=== PATIENT | male | born 1955 | race Caucasian/White ===

== ENCOUNTER 2019-06-25 07:02 | Inpatient (IN) | payer OTHER ==
[~2019-06-25] VITALS: Ht 188 cm; Wt 72.9 kg
[2019-06-25] MEDS ORDERED: IMMUNO THERAPY (07:27)
[2019-06-25 07:56] LABS: BASOPHILS ABSOLUTE AUTO 0.03 K/mm3 (0.00-0.23); BASOPHILS PERCENT AUTO 0 % (0-2); EOSINOPHILS ABSOLUTE AUTO 0.01 K/mm3 (0.00-0.68); EOSINOPHILS PERCENT AUTO 0 % (0-6); Hematocrit 32.1 % (37.0-53.0); Hemoglobin 9.5 g/dL (13.5-17.5); IMMATURE GRAN ABSOLUTE AUTO 0.12 K/mm3 (0.00-0.10); IMMATURE GRAN PERCENT AUTO 1 % (0-1); LYMPHOCYTES ABSOLUTE AUTO 2.06 K/mm3 (0.84-5.20); LYMPHOCYTES PERCENT AUTO 12 % (21-46); MONOCYTES ABSOLUTE AUTO 1.03 K/mm3 (0.16-1.47); MONOCYTES PERCENT AUTO 6 % (4-13); Mean Corpuscular HGB 23.3 pg (26.0-34.0); Mean Corpuscular HGB Conc 29.6 g/dL (31.5-36.5); Mean Corpuscular Volume 79 fL (80-100); Mean Platelet Volume 8.7 fL (9.1-12.4); NEUTROPHILS ABSOLUTE AUTO 14.69 K/mm3 (1.96-9.15); NEUTROPHILS PERCENT AUTO 82 % (41-73); Platelet Count 478 K/mm3 (150-400); RDW Standard Deviation 48.9 fL (35.1-46.3); Red Blood Cell Count 4.07 M/mm3 (4.30-5.90); White Blood Cell Count 17.94 K/mm3 (4.00-11.30)
[2019-06-25 08:17] LABS: Albumin, Blood 2.1 g/dL (3.4-5.0); Albumin/Globulin Ratio 0.4 (0.8-1.8); Bilirubin, Total 0.3 mg/dL (0.1-1.0); Bun/Creatinine Ratio 13.3 (12.0-20.0); Calcium, Blood 8.6 mg/dL (8.5-10.1); Creatinine, Blood 4.73 mg/dL (0.60-1.20); Globulin, Blood 5.6 g/dL (2.2-4.0); Potassium, Blood 5.2 mmol/L (3.5-5.5); Total Protein, Blood 7.7 g/dL (6.4-8.2)
[2019-06-25 10:51] LABS: Magnesium, Blood 2.3 mg/dL (1.6-2.4); Phosphorus, Blood 6.7 mg/dL (2.5-4.9)
[2019-06-25] MEDS ORDERED: ASCO500 PO (12:59)
[2019-06-25 16:54] LABS: Albumin, Blood 1.9 g/dL (3.4-5.0); Albumin/Globulin Ratio 0.4 (0.8-1.8); Bilirubin, Total 0.4 mg/dL (0.1-1.0); Bun/Creatinine Ratio 14.8 (12.0-20.0); Calcium, Blood 7.7 mg/dL (8.5-10.1); Creatinine, Blood 4.52 mg/dL (0.60-1.20); Globulin, Blood 4.7 g/dL (2.2-4.0); Potassium, Blood 4.9 mmol/L (3.5-5.5); Total Protein, Blood 6.6 g/dL (6.4-8.2)
--- NOTE | 2019-06-25 19:11 | NUR ---
SHIFT SUMMARY. 1605 PT ARRIVED TO MEDICAL FLOOR VIA GURNEY FROM ER. PT HAD LARGE LIQUID INCONTINENT STOOL AT THAT TIME, INCONTINENCE CARE PROVIDED. PT CONTINUED TO HAVE SEVERAL LIQUID STOOLS, THAT APPEARED MUCOUSY, NO BLOOD OBSERVED. STOOL SAMPLE ATTAINED AND SENT TO LAB. PT DENIES PAIN, SOB, N/V. PT REPORTS VERY POOR APPETITE AND A WEIGHT LOSS OF 30 LBS. IN THE MOST MONTH. LAST DOSE OF IMMUNOTHERAPY PER PT WAS 3 DAYS AGO. IV FLUIDS RUNNING SINCE ADMIT.
[2019-06-25 22:54] LABS: Campylobacter Sp Detected (NOT DETECT); Enteroaggregative E. coli-EAEC Not Detected (NOT DETECT); Enteropathogenic E. coli-EPEC Detected (NOT DETECT); Enterotoxigenic E. coli-ETEC Not Detected (NOT DETECT); Plesiomonas Shigelloides Not Detected (NOT DETECT); Salmonella Sp Not Detected (NOT DETECT); Shiga Toxin-prod E. coli-STEC Not Detected (NOT DETECT); Vibrio Cholerae Not Detected (NOT DETECT); Vibrio Sp Not Detected (NOT DETECT); Yersinia Enterocolitica Not Detected (NOT DETECT)
[2019-06-25 22:55] LABS: Adenovirus F 40/41 Not Detected (NOT DETECT); Astrovirus Not Detected (NOT DETECT); Cryptosporidium Not Detected (NOT DETECT); Cyclospora Cayetanensis Not Detected (NOT DETECT); E. Coli O157 Not Detected (NOT DETECT); Entamoeba Histolytica Not Detected (NOT DETECT); Giardia Lamblia Not Detected (NOT DETECT); Norovirus GI/GII Not Detected (NOT DETECT); Rotavirus A Not Detected (NOT DETECT); Sapovirus Not Detected (NOT DETECT); Shigella/Enteroin E. coli-EIEC Not Detected (NOT DETECT)
--- NOTE | 2019-06-26 04:17 | NUR ---
PT FOUND TO RETAINING >700 VIA BLADDER SCAN. PROVIDER CALLED AND ORDER FOR OT STRAIGHT CATH, PRODUCED 1000 ML. PT TOLERATED WELL.
[2019-06-26 05:43] LABS: BASOPHILS ABSOLUTE AUTO 0.03 K/mm3 (0.00-0.23); BASOPHILS PERCENT AUTO 0 % (0-2); EOSINOPHILS ABSOLUTE AUTO 0.03 K/mm3 (0.00-0.68); EOSINOPHILS PERCENT AUTO 0 % (0-6); Hematocrit 25.4 % (37.0-53.0); Hemoglobin 7.6 g/dL (13.5-17.5); IMMATURE GRAN ABSOLUTE AUTO 0.05 K/mm3 (0.00-0.10); IMMATURE GRAN PERCENT AUTO 0 % (0-1); LYMPHOCYTES ABSOLUTE AUTO 1.39 K/mm3 (0.84-5.20); LYMPHOCYTES PERCENT AUTO 11 % (21-46); MONOCYTES PERCENT AUTO 6 % (4-13); Mean Corpuscular HGB 23.3 pg (26.0-34.0); Mean Corpuscular HGB Conc 29.9 g/dL (31.5-36.5); Mean Corpuscular Volume 78 fL (80-100); Mean Platelet Volume 8.9 fL (9.1-12.4); NEUTROPHILS ABSOLUTE AUTO 10.02 K/mm3 (1.96-9.15); NEUTROPHILS PERCENT AUTO 82 % (41-73); Platelet Count 340 K/mm3 (150-400); RDW Coefficient Variation 17.2 % (11.7-14.2); Red Blood Cell Count 3.26 M/mm3 (4.30-5.90); White Blood Cell Count 12.22 K/mm3 (4.00-11.30)
[2019-06-26 06:08] LABS: Albumin, Blood 1.7 g/dL (3.4-5.0); Albumin/Globulin Ratio 0.4 (0.8-1.8); Bilirubin, Total 0.3 mg/dL (0.1-1.0); Bun/Creatinine Ratio 15.1 (12.0-20.0); Calcium, Blood 7.8 mg/dL (8.5-10.1); Creatinine, Blood 4.37 mg/dL (0.60-1.20); Globulin, Blood 4.4 g/dL (2.2-4.0); Potassium, Blood 4.5 mmol/L (3.5-5.5); Total Protein, Blood 6.1 g/dL (6.4-8.2)
[2019-06-26 13:02] LABS: Hematocrit 27.7 % (37.0-53.0); Hemoglobin 8.4 g/dL (13.5-17.5)
[2019-06-26 17:50] LABS: Source, Urine Catheter
[2019-06-26 17:57] LABS: Bilirubin, Urine Neg (Neg); Blood, Urine Neg (Neg); Glucose Qualitative, Urine Neg (Neg); Ketones, Urine 2+ (Neg); Leukocyte Esterase, Urine Neg (Neg); Nitrite, Urine Neg (Neg); Protein, Urine 1+ (Neg); Urobilinogen, Urine NORM (Normal)
[2019-06-26 17:59] LABS: Appearance, Urine Clear (Clear); Color, Urine Yellow (P-Yellow)
--- NOTE | 2019-06-26 18:29 | NUR ---
PT IS A/OX3, COOPERATIVE, THE PT HAS BEEN VERY STOIC AND SLOW TO RESPOND, PT ANSWERS SIMPLE QUESTIONS AT TIMES, THE PT TODAY DENIED FEELING NAUSEATED , HOWEVER, ONLY ATE SMALL AMOUNTS OF FOOD, REPORTED THAT HE WAS JUST TAKING IT SLOW FOR NOW, THE PT THIS AM DECLINED TO RECIEVE IV ANTIBIOTICS, THE PT WAS EDUCATED ON THE REASON FOR THE ANTIBIOTICS, HOWEVER, STILL DECLINED THEM, THE PTS SISTER WAS AT THE BEDSIDE AT THAT TIME, DR. GUTHRIE WAS INFORMED OF THE PTS DECISION, THIS EVENING IT WAS FOUND THAT THE PT HAD NOT URINATED ALL DAY DESPIT IV FLUIDS, A BLADDER SCAN WAS PREFORMED AND 575ML FOUND IN, THE PT AGREED AT THAT TIME TO ALLOW A TIERNEY CATHETER TO BE INSERTED, THE PT REPORTED PAIN BUT COULD NOT EXPLAIN WHERE THE PAIN WAS, THE PT WAS OFFERED PAIN MEDICATION, HOWEVER HE REFUSED IT WHEN ASKED AGAIN, THE PT APPEARS TO BE BREATHING EASILY ON RA AT THIS TIME, RECTAL TUBE IN PLACE AND DRAINING, CALL LIGHT IN REACH
--- NOTE | 2019-06-27 04:50 | NUR ---
SHIFT SUMMARY NO ACUTE CHANGES TO REPORT THIS SHIFT. PT HAS DIFFICULTY FINDING HIS WORDS. HE STATES "[facility]" ALOT, OR WILL START A SENTENCE TRAIL OFF AND NOT FINISH. SPEECH IS NON SENSICAL AND PT DOES NOT MAKE EYE CONTACT HE IS SPEAKING. DIFFICULT TO DETERMINE PT ORIENTATION HE DOES NOT ANSWER TO THE QUESTIONS I ASK. OTHERWISE, PT HAS BEEN COOPERATIVE WITH CARE AND ASSESSMENTS THIS SHIFT. RECTAL TUBE AND TIERNEY IN PLACE PATENT AND DRAINING. RECTAL TUBE WITH BROWN LOOSE STOOLS, AND TIERNEY WITH YELLOW URINE THAT IS HEAVY WITH SEDIMENT. PT HAS BEEN IN BED T/O THE NIGHT. HE DENIES NEEDS WHEN ASKED. CLINIMIX PER ORDERS. BED IN LOWEST POSITION, CALL LIGHT WITHIN REACH. WILL CONTINUE TO MONITOR AND REPORT TO ONCOMING RN.
[2019-06-27 05:39] LABS: BASOPHILS ABSOLUTE AUTO 0.01 K/mm3 (0.00-0.23); BASOPHILS PERCENT AUTO 0 % (0-2); EOSINOPHILS ABSOLUTE AUTO 0.12 K/mm3 (0.00-0.68); EOSINOPHILS PERCENT AUTO 1 % (0-6); Hematocrit 25.8 % (37.0-53.0); IMMATURE GRAN ABSOLUTE AUTO 0.04 K/mm3 (0.00-0.10); IMMATURE GRAN PERCENT AUTO 0 % (0-1); LYMPHOCYTES ABSOLUTE AUTO 1.23 K/mm3 (0.84-5.20); LYMPHOCYTES PERCENT AUTO 12 % (21-46); MONOCYTES ABSOLUTE AUTO 0.59 K/mm3 (0.16-1.47); MONOCYTES PERCENT AUTO 6 % (4-13); Mean Corpuscular HGB 23.7 pg (26.0-34.0); Mean Corpuscular Volume 76 fL (80-100); Mean Platelet Volume 9.3 fL (9.1-12.4); NEUTROPHILS ABSOLUTE AUTO 8.49 K/mm3 (1.96-9.15); NEUTROPHILS PERCENT AUTO 81 % (41-73); Platelet Count 279 K/mm3 (150-400); RDW Coefficient Variation 17.2 % (11.7-14.2); RDW Standard Deviation 47.4 fL (35.1-46.3); Red Blood Cell Count 3.38 M/mm3 (4.30-5.90); White Blood Cell Count 10.48 K/mm3 (4.00-11.30)
--- NOTE | 2019-06-27 06:16 | NUR ---
CONFUSION DR. JOYA NOTIFIED ABOUT PT INCREASED CONFUSION AND DIFFICULTY FINDING WORDS. AMMONIA LAST CHECKED ON THE . DR. THORNTON GAVE NO ADDITIONAL ORDERS REGARDING THIS.
[2019-06-27 06:18] LABS: Albumin, Blood 1.6 g/dL (3.4-5.0); Anion Gap 9 mmol/L (6-16); Blood Urea Nitrogen 70 mg/dL (8-24); Bun/Creatinine Ratio 20.8 (12.0-20.0); CO2, Blood 20 mmol/L (21-32); Calcium, Blood 7.6 mg/dL (8.5-10.1); Chloride, Blood 105 mmol/L (98-108); Creatinine, Blood 3.37 mg/dL (0.60-1.20); Glomerular Filtration Rate 20 (60-); Glucose, Blood 111 mg/dL (70-99); Potassium, Blood 4.2 mmol/L (3.5-5.5); Sodium, Blood 134 mmol/L (136-145)
[2019-06-27 06:19] LABS: CPK Creatine Kinase 305 U/L (39-308)
[2019-06-27 06:22] LABS: Phosphorus, Blood 3.6 mg/dL (2.5-4.9)
--- NOTE | 2019-06-27 16:37 | NUR ---
PT IS A/OX3, PLEASANT AND COOPERATIVE, THE HAS BEEN BEDREST TODAY, REPOSITIONS SELF, THE PT REPORTED TODAY THAT HE WAS STARTING TO FEEL MUCH BETTER COMPARED TO YESTERDAY AND THAT HE FELT, SINCE THE RECTAL TUBE HAS BEEN PLACED, ITS THE MOST REST HES BEEN ABLE TO GET SINCE STARTING [facility], THE PT BECOMES VERY EMOTIONAL THOUGH HE IS THANKFULL FOR HIS REST, PT APPEARS TO BE BREATHING EASILY ON RA, PT DENIES PAIN AT THIS TIME, CALL LIGHT IN REACH, WILL CONTINUE TO MONITOR AND ASSESS FOR CHANGES
[2019-06-28 05:22] LABS: BASOPHILS ABSOLUTE AUTO 0.03 K/mm3 (0.00-0.23); BASOPHILS PERCENT AUTO 0 % (0-2); EOSINOPHILS ABSOLUTE AUTO 0.17 K/mm3 (0.00-0.68); EOSINOPHILS PERCENT AUTO 2 % (0-6); Hematocrit 25.4 % (37.0-53.0); Hemoglobin 7.8 g/dL (13.5-17.5); IMMATURE GRAN ABSOLUTE AUTO 0.03 K/mm3 (0.00-0.10); IMMATURE GRAN PERCENT AUTO 0 % (0-1); LYMPHOCYTES ABSOLUTE AUTO 1.73 K/mm3 (0.84-5.20); LYMPHOCYTES PERCENT AUTO 20 % (21-46); MONOCYTES ABSOLUTE AUTO 0.81 K/mm3 (0.16-1.47); MONOCYTES PERCENT AUTO 9 % (4-13); Mean Corpuscular HGB 23.4 pg (26.0-34.0); Mean Corpuscular HGB Conc 30.7 g/dL (31.5-36.5); Mean Corpuscular Volume 76 fL (80-100); Mean Platelet Volume 9.7 fL (9.1-12.4); NEUTROPHILS ABSOLUTE AUTO 6.01 K/mm3 (1.96-9.15); NEUTROPHILS PERCENT AUTO 69 % (41-73); Platelet Count 213 K/mm3 (150-400); RDW Coefficient Variation 17.2 % (11.7-14.2); RDW Standard Deviation 47.3 fL (35.1-46.3); Red Blood Cell Count 3.33 M/mm3 (4.30-5.90); White Blood Cell Count 8.78 K/mm3 (4.00-11.30)
--- NOTE | 2019-06-28 05:42 | NUR ---
SHIFT SUMMARY PT IS IN MUCH BETTER SPIRITS THIS SHIFT, HE IS MORE ALERT AND IS COMMUNICATING CLEARLY WITH STAFF. THIS IS A HUGE CHANGE FROM A DAY AGO WHEN PT WAS HAVING DIFFICULTY FINDING HIS WORDS. PT IS A/OX4 THIS SHIFT. HE IS APPRECIATIVE OF THE STAFF AND THE CARE HE HAS RECEIVED DURING HIS STAY. PT IS RELIVED TO HAVE A RECTAL TUBE IN PLACE. HE STATES THAT WHILE HE WAS AT HOME HE WAS UNABLE TO SLEEP DUE TO CONSTANT DIARRHEA. PT APPETITIE HAS IMPROVED. CLINMIX CONTINUED PER ORDERS. TIERNEY IN PLACE DRAINING. REQUIRED MANUAL IRRIGATION X1 BY HAND EDGE BANDER DUE TO HEAVY SEDIMENT CLOGGING TIERNEY. PT VITALS HAVE BEEN STABLE. PT EXPRESSED CONCERNED ABOUT RECEIVING ABX HE STATES THAT HE REFUSES AND AVOIDS ANTIBIOTICS IN FEAR THAT HE WILL DEVELOP RESISTANCE TO THEM IN THE FUTURE. I EDUCATED PT ON THE USE OF ABX AND WHY HE NEEDED THEM. I WILL NOTIFY DAYSHIFT RN TO FOLLOW UP WITH DAYSHIFT HOSPITALIST REGARDING PT CONCERNS. NO OTHER CHANGES TO REPORT THIS SHIFT. BED IN LOWEST POSITION. CALL LIGHT WITHIN REACH. WILL CONTINUE TO MONITOR AND REPORT TO ONCOMING RN.
[2019-06-28 05:49] LABS: Albumin, Blood 1.6 g/dL (3.4-5.0); Anion Gap 8 mmol/L (6-16); Blood Urea Nitrogen 74 mg/dL (8-24); Bun/Creatinine Ratio 27.6 (12.0-20.0); CO2, Blood 21 mmol/L (21-32); Calcium, Blood 7.7 mg/dL (8.5-10.1); Chloride, Blood 102 mmol/L (98-108); Creatinine, Blood 2.68 mg/dL (0.60-1.20); Glomerular Filtration Rate 26 (60-); Glucose, Blood 105 mg/dL (70-99); Potassium, Blood 4.3 mmol/L (3.5-5.5); Sodium, Blood 131 mmol/L (136-145)
--- NOTE | 2019-06-28 17:00 | NUR ---
PT IS A/OX3, PLEASANT AND COOPERATIVE, PT REPORTS FEELING MUCH BETTER TODAY, THE PT IS VERY TALKATIVE, THE PT APPEARS TO BE BREATHING EASILY ON RA AT THIS TIME, THE PT DENIED ANY PAIN SO FAR THIS SHIFT, DR. GUTHRIE TALKED WITH THE PT AT LENGTH THIS AM, AND THE PT AGREED TO RECIEVE ANTI BIOTICS, THE PHYSICAL THERAPIST WORKED WITH THE PT TODAY, CONSULT FOR DR. VELASCO WAS CALL AND THE WILL CONSULT ON THE PT TOMORROW, RECTAL TUBE AND TIERNEY CATHETER IN PLACE AND DRAINING, CALL LIGHT IN REACH,
--- NOTE | 2019-06-29 04:43 | NUR ---
SHIFT SUMMARY- PT. HAD RESTFUL NIGHT, NO APPARENT DISTRESS NOTED. DENIED ANY PAIN OR DISCOMFORT T/O THE SHIFT. CLINIMIX INFUSING PER ORDER, PT. TOLERATING WELL. TIERNEY CATHETER AND RECTAL TUBE REMAIN IN PLACE. CALL LIGHT WITHIN REACH AND SIDE RAILS UP X2. WILL CONT TO MONITOR.
[2019-06-29 05:39] LABS: BASOPHILS ABSOLUTE AUTO 0.03 K/mm3 (0.00-0.23); BASOPHILS PERCENT AUTO 0 % (0-2); EOSINOPHILS ABSOLUTE AUTO 0.18 K/mm3 (0.00-0.68); EOSINOPHILS PERCENT AUTO 2 % (0-6); Hematocrit 26.1 % (37.0-53.0); IMMATURE GRAN ABSOLUTE AUTO 0.05 K/mm3 (0.00-0.10); IMMATURE GRAN PERCENT AUTO 1 % (0-1); LYMPHOCYTES ABSOLUTE AUTO 1.68 K/mm3 (0.84-5.20); LYMPHOCYTES PERCENT AUTO 17 % (21-46); MONOCYTES ABSOLUTE AUTO 1.23 K/mm3 (0.16-1.47); MONOCYTES PERCENT AUTO 12 % (4-13); Mean Corpuscular HGB 23.3 pg (26.0-34.0); Mean Corpuscular HGB Conc 30.7 g/dL (31.5-36.5); Mean Corpuscular Volume 76 fL (80-100); Mean Platelet Volume 10.4 fL (9.1-12.4); NEUTROPHILS ABSOLUTE AUTO 7.03 K/mm3 (1.96-9.15); NEUTROPHILS PERCENT AUTO 69 % (41-73); Platelet Count 184 K/mm3 (150-400); RDW Coefficient Variation 17.2 % (11.7-14.2); RDW Standard Deviation 46.8 fL (35.1-46.3); Red Blood Cell Count 3.44 M/mm3 (4.30-5.90)
[2019-06-29 06:03] LABS: Albumin, Blood 1.6 g/dL (3.4-5.0); Anion Gap 9 mmol/L (6-16); Blood Urea Nitrogen 65 mg/dL (8-24); Bun/Creatinine Ratio 28.5 (12.0-20.0); CO2, Blood 20 mmol/L (21-32); Calcium, Blood 8.1 mg/dL (8.5-10.1); Chloride, Blood 103 mmol/L (98-108); Creatinine, Blood 2.28 mg/dL (0.60-1.20); Glomerular Filtration Rate 31 (60-); Glucose, Blood 94 mg/dL (70-99); Potassium, Blood 4.3 mmol/L (3.5-5.5); Sodium, Blood 132 mmol/L (136-145)
[2019-06-29 07:49] LABS: Albumin, Blood 1.6 g/dL (3.4-5.0); Albumin/Globulin Ratio 0.3 (0.8-1.8); Bilirubin, Direct 0.1 mg/dL (0.0-0.3); Bilirubin, Indirect 0.2 mg/dL (0.1-0.7); Bilirubin, Total 0.3 mg/dL (0.1-1.0); Globulin, Blood 4.7 g/dL (2.2-4.0); Total Protein, Blood 6.3 g/dL (6.4-8.2)
--- NOTE | 2019-06-29 08:57 | NUR ---
OBTAINED PT PERMISSION CYBER SECURITY SPECIALIST OBTAINED VERBAL PERMISSION TO HELP WITH PATIENT CARE TODAY.
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
--- NOTE | 2019-06-29 13:48 | NUR ---
PERMISSION FOR CARE I, VALARIE PINA, A [facility] [place] [facility], RECEIVED PERMISSION FROM THIS PATEINT TO PROVIDE CARE FOR HIM ON 06/29/2019.
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
--- NOTE | 2019-06-29 16:05 | NUR ---
Patient is alert and oriented and agreed to care on 06/30/19.
--- NOTE | 2019-06-29 19:10 | NUR ---
PT. SITTING IN BED, HAS BEEN WEEPY TODAY R/T TO DIAGNOSIS OF CA WITH METS. PT. HAS RECTAL TUBE THAT IS STILL PUTTING OUT LIQUID STOOL. PT. HAS EATEN WELL TODAY AND SLEPT OFF AND ON. PALLIATIVE CARE AND SPIRITUAL CARE WORKER CAME TO SEE PT. TODAY. DID NOT SEE DR. VELASCO TODAY. NO NOTEABLE CHANGES THIS SHIFT.
--- NOTE | 2019-06-30 04:58 | NUR ---
SHIFT SUMMARY- PT. HAS BEEN AWAKE T/O THE SHIFT. ALERT W/INTERMITTENT CONFUSION. ATTEMPTED TO GET OOB 1X, REDIRECTED. DENIES C/O PAIN OR DISCOMFORT. RECTAL TUBE AND TIERNEY CATHETER REMAIN IN PLACE, DRAINING WELL. PT. CONTS TO HAVE MODERATE AMOUNT OF LIQUID STOOL. VS HAVE BEEN STABLE. CLINIMIX INFUSING PER ORDER, PT. TOLERATING WELL. PLAN IS FOR POSS SNF PLACEMENT ONCE PT. MEDICALLY STABLE. CALL LIGHT WITHIN REACH, SIDE RAILS UP X2, AND BED ALARM ON FOR SAFETY. WILL CONT TO MONITOR.
[2019-06-30 04:59] LABS: Hematocrit 25.6 % (37.0-53.0); Hemoglobin 7.9 g/dL (13.5-17.5)
[2019-06-30 05:29] LABS: Albumin, Blood 1.6 g/dL (3.4-5.0); Anion Gap 8 mmol/L (6-16); Blood Urea Nitrogen 59 mg/dL (8-24); CO2, Blood 21 mmol/L (21-32); Chloride, Blood 104 mmol/L (98-108); Creatinine, Blood 2.11 mg/dL (0.60-1.20); Glomerular Filtration Rate 34 (60-); Glucose, Blood 103 mg/dL (70-99); Magnesium, Blood 1.8 mg/dL (1.6-2.4); Phosphorus, Blood 3.2 mg/dL (2.5-4.9); Potassium, Blood 4.2 mmol/L (3.5-5.5); Sodium, Blood 133 mmol/L (136-145)
--- NOTE | 2019-06-30 18:25 | NUR ---
Spiritual care note: Asked by RN to meet with Neno as he was tearful and confused. Neno often lost track of conversation, sometimes mid-sentance. He was unable to articulate the reason behind his tearfulness. He spoke about his past in snippets and would sometimes smile incongruently with the stories. He told me he was in pain, but then denied medication. He appeared to appreciaite companionship and reassurance. He allowed me to pray for him. By the time I left he was more calm. Home Care Manager services will remain available.
--- NOTE | 2019-06-30 19:00 | NUR ---
TP. SITTING IN BED PRBC'S INFUSING. PT. HAS BEEN WEEPING AGAIN TODAY . VERY DISORIENTED AND CONFUSED T/O THE DAY. DOESN'T USE CALL LIGHT ANY LONGER, JUST YELLS HELP. NO OTHER NOTEABLE CHANGES. RECTAL NOTED TO HAVE SOME BLOOD IN THE TUBING. TIERNEY CATHETER INTACT.
--- NOTE | 2019-06-30 21:10 | NUR ---
BLOOD INFUSED. NO NOTED ADVERSE REACTIONS. DENIED PAIN OF FLANKS AND NO NOTED DISTRESS.
--- NOTE | 2019-07-01 03:18 | NUR ---
BLOOD UNIT INFUSED AAT SHIFT COMMENCE. CLINIMIX CURRENTLY INFUSING. INTERMITTENT CALLING OUT, BUT SEEMED OK WHEN CHECKED ON. LABILE AFFECT. TIERNEY AND RECTAL TUBE DRAINING. CALL LIGHT IN REACH. NURSE DOING FREQUENT ROUNDS.
[2019-07-01 05:25] LABS: BASOPHILS ABSOLUTE AUTO 0.06 K/mm3 (0.00-0.23); BASOPHILS PERCENT AUTO 1 % (0-2); EOSINOPHILS PERCENT AUTO 2 % (0-6); Hematocrit 32.2 % (37.0-53.0); Hemoglobin 9.7 g/dL (13.5-17.5); IMMATURE GRAN ABSOLUTE AUTO 0.06 K/mm3 (0.00-0.10); IMMATURE GRAN PERCENT AUTO 1 % (0-1); LYMPHOCYTES PERCENT AUTO 15 % (21-46); MONOCYTES ABSOLUTE AUTO 0.71 K/mm3 (0.16-1.47); MONOCYTES PERCENT AUTO 7 % (4-13); Mean Corpuscular HGB 23.8 pg (26.0-34.0); Mean Corpuscular HGB Conc 30.1 g/dL (31.5-36.5); Mean Platelet Volume 10.8 fL (9.1-12.4); NEUTROPHILS ABSOLUTE AUTO 7.55 K/mm3 (1.96-9.15); NEUTROPHILS PERCENT AUTO 75 % (41-73); Platelet Count 216 K/mm3 (150-400); RDW Coefficient Variation 17.2 % (11.7-14.2); RDW Standard Deviation 49.1 fL (35.1-46.3); Red Blood Cell Count 4.08 M/mm3 (4.30-5.90); White Blood Cell Count 10.08 K/mm3 (4.00-11.30)
[2019-07-01 05:27] LABS: Mean Corpuscular Volume 79 fL (80-100)
[2019-07-01 05:43] LABS: Albumin, Blood 1.7 g/dL (3.4-5.0); Albumin/Globulin Ratio 0.3 (0.8-1.8); Bilirubin, Total 0.5 mg/dL (0.1-1.0); Bun/Creatinine Ratio 25.6 (12.0-20.0); Calcium, Blood 8.6 mg/dL (8.5-10.1); Creatinine, Blood 2.03 mg/dL (0.60-1.20); Globulin, Blood 5.2 g/dL (2.2-4.0); Potassium, Blood 4.4 mmol/L (3.5-5.5); Total Protein, Blood 6.9 g/dL (6.4-8.2)
--- NOTE | 2019-07-01 16:18 | NUR ---
SHIFT SUMMARY PT IS A/O X 4 WITH NO C/O PAIN. HE HAS BEEN RESTING MOST OF THE DAY. THIS MORNING HE COMPLAINED THAT HIS IV WAS "BOTHERING" HIM AND ASKED THAT IT BE MOVED OUT OF THE BEND OF HIS ELBOW WHICH WAS DONE PER HIS REQUEST. IV FLUIDS/ABO INFUSED ORDERED WITH NO ISSUE. RECTAL TUBE REMAINS IN PLACE AND PATENT. TIERNEY IS PATENT. PT IS ABLE TO MAKE HIS NEEDS KNOWN AND CALLS FOR HELP WHEN NEEDED. CALL LIGHT IS IN REACH.
--- NOTE | 2019-07-02 04:50 | NUR ---
INTERMITTENT CALLING OUT FOR ASSISTANCE THIS SHIFT. ASSISTED WITH RECTAL TUBE AND IVF. INERMITTENT DISCUSSIONS RE HOW HE FELT ABOUT HIS CARE AND WHAT HE FELT HE NEEDED TO SUCCEED. VOICED WANTED TO TALK WITH THE MD THIS AM AND EVENTUALLY VOICED HE FELT BETTER AND LESS ANXIOUS RE HIS STATUS. CLINIMIX AND ABX INFUSING PER MAR - SEE MAR FOR DETAILS. CALL LIGHT IN REACH
[2019-07-02 06:23] LABS: Hematocrit 24.9 % (37.0-53.0); Hemoglobin 7.7 g/dL (13.5-17.5)
[2019-07-02 06:34] LABS: Bun/Creatinine Ratio 28.5 (12.0-20.0); Calcium, Blood 8.5 mg/dL (8.5-10.1); Creatinine, Blood 1.65 mg/dL (0.60-1.20); Potassium, Blood 4.8 mmol/L (3.5-5.5)
--- NOTE | 2019-07-02 08:45 | NUR ---
PT ARRIVAL: PT IS ALERT AND ORIENTED TO SELF/HOSPITAL, HOWEVER, CONTINUOUS NON-SENSICAL SENTENCES MADE, DESPITE RE-ORIENTATION. WILL HAVE PALLATIVE CARE CONSULT WITH PT. PT REPORTS ABD PAIN THAT HE IS UNABLE TO RATE AT THIS TIME. PT IS ABLE TO ANSWER MOST SIMPLE YES/NO QUESTIONS SLOWLY, BUT APPROPRIATELY. ABLE TO FOLLOW SIMPLE COMMANDS. LUNGS ARE CLEAR T/O BILATERALLY, WITH SP02 SATS >90% ON RA. HR REGULAR, SR-70'S RANGE. NS @ 125ML/HR, CLINIMIX @ 100ML/HR. ABD MILDLY DISTENDED, VERY GAURDED WITH HYPOACTIVE BT'S. PT REPORTS CONTINUED POOR APPETITE AND REPORTS MINIMAL PO INTAKE. NO NAUSEA AT THIS TIME. PT HAS MAROOM, LIQUID OUTPUT PER RECTAL TUBE. PT WITH MODERATE AMT OF RECTAL PAIN FROM TUBE. LATER PT'S MAIN C/O "CRAMPING" ABD PAIN. GI CONSULT PENDING.
--- NOTE | 2019-07-02 09:39 | NUR ---
CALLED PALLATIVE CARE RN: NATHALIA BEDSIDE SPEAKING WITH PT RE: CARE PLAN WISHES. PT WAS VERY ANXIOUS IN REGARDS TO CARE PROVIDED AND WANTS TO MAKE HIS HEALHCARE WISHES KNOWN WHILE HE'S, "STILL CONSCIOUS." PT CALMED AFTER ASSURING PT THAT A PALLATIVE CARE RN WOULD MEET WITH HIM TODAY RE: ABOVE NOTED.
--- NOTE | 2019-07-02 09:45 | NUR ---
DR PARK IN TO CONSULT WITH PT.
--- NOTE | 2019-07-02 10:36 | NUR ---
PT UPDATE: EXPLAINED GO-LYTLEY AND THE NEED FOR THIS MEDICATION TO THE PT. DR PARK RETURNED TO THE BEDSIDE TO DISCUSS PENDING SCOPES.
--- NOTE | 2019-07-02 10:45 | NUR ---
Called by ICU nursing staff to speak with Neno. He is very fearful and anxious this morning. Sat with him and allowed him to express his fears. He stated repeatedly "Ignore the [facility]." "I don't want to be hauled off to the [facility]." Explained to him that he is at [facility] and he will be staying here for treatment at this time. Dr. Lockhart visited and consulted with Neno. Neno agreed that he wants to proceed with the recommended EGD and coloscopy later today. Neno is fearful of dying and becoming "incoherent." Offered emotional support and told him that this feature writer would write down his wishes. He was very thankful. He told this feature writer to "Ignore the [facility]." He also told this feature writer that he has an appointment with Dr. Joyner office next Friday that he will likely miss if he is still in the hospital. Offered to contact Dr. Joyner office for him and he declined. He could not come up with any other wishes that he wanted this feature writer to write down. Neno is very anxious and fearful that he will be sent to the [facility]. He seems almost paranoid, however he did not state why he wants to "Ignore the [facility]." He confirmed his wishes to be full code at this time. He has periods where he seems fairly alert and oriented and then periods where he seems less lucid and very anxious. Emotional support given. He would very likely benefit from a behavioral health consult. PC will continue to follow for advanced care planning.
--- NOTE | 2019-07-02 10:50 | NUR ---
0730 PT ASSESSED, RECTAL TUBE WITH BRIGHT RED BLOOD IN TUBE AND COLLECTION BAG, BP TRENDING DOWN. CN NOTIFIED, DR. RUSSO NOTIFIED. 0800 CN AND MD AT BEDSIDE, RECIEVED ORDERS FOR 500ML BOLUS AND TRANSFER TO ICU. 0845 PT TRANSFERED TO ICU 10, BOLUS INFUSED. REPORT GIVEN TO Jocelyn EDWARDS RN AT BEDSIDE.
--- NOTE | 2019-07-02 10:58 | NUR ---
0900 PT'S SISTER VITA NOTIFIED OF TRANSFER TO ICU PER PT'S REQUEST.
--- NOTE | 2019-07-02 11:23 | NUR ---
QUILL WORKER HERE TO DO ABD XRAY.
--- NOTE | 2019-07-02 12:00 | NUR ---
ARSALAN FUENTES: SPOKE WITH DR PARK WHOM REVIEWED ARSALAN FUENTES. WILL HOLD OFF ON GO-LYTELY PER DR PARK WITH PLANS TO SCOPE AT APPROX [phone] TODAY. PT TO BE NPO AT THIS TIME TILL PROCEDURE.
[2019-07-02 12:58] LABS: Hematocrit 25.9 % (37.0-53.0); Hemoglobin 8.1 g/dL (13.5-17.5)
--- NOTE | 2019-07-02 13:48 | NUR ---
PT UPDATE: PT FOUND PULLING ON HIS IV'S AND PUSHING BUTTONS ON HIS IV PUMPS. PT EDUCATED NOT TO DO THIS AND IV PUMP PLACED OUT OF REACH. PT CONTINUES TO BE ANXIOUS AND YELL OUT FREQUENTLY.
--- NOTE | 2019-07-02 16:24 | NUR ---
DAY SURGERY CREW HERE, SETTING UP FOR EGD/COLONOSCOPY.
--- NOTE | 2019-07-02 16:32 | NUR ---
07/02/19 1632 Todd Reyes History, Chart, Medications and Allergies reviewed before start of procedure.MONITOR INTACT WITH CONTINUOUS PULSE OXIMETRY AND INTERMITTENT BP.3-LEAD EKG REVIEWED WITH PHYSICIAN PRIOR TO START OF PROCEDURE.O2 VIA N/C INTACT THROUGHOUT SEDATION/PROCEDURE. PATIENT DETERMINED TO BE ASA APPROPRIATE FOR PROPOFOL SEDATION PRIOR TO START OF PROCEDURE BY DR. PARK.
--- NOTE | 2019-07-02 17:16 | NUR ---
SHIFT SUMMARY: PT CURRENTLY UNDERGOING EGD/COLONOSCOPY PER DR PARK. PRIOR TO PROCEDURE, PT IS ALERT AND ORIENTED TO SELF ONLY. PT VERY ANXIOUS AND CONT TO SPEAK NON-SENSICAL SENTENCES AND HAS POOR SHORT TERM MEMORY. PT HAS REPEATEDLY STATED, "I'M GOING TO " AND "I'M GOING FOR EMERGENCY SURGERY TODAY." PT REPEATEDLY EDUCATED ON PLAN OF CARE FOR THE DAY. LUNGS ARE CLEAR T/O BILATERALLY WITH SPO2 SATS >90% ON RA. HR REGULAR, SR-70'S RANGE T/O SHIFT. CLINIMIX @ 100ML/HR, PT HAS HAD POOR PO INTAKE RECENTLY AND WAS HELP NPO SINCE 1300 FOR GI PROCEDURES. ABD MODERATELY DISTENDED, TENDER T/O IN ALL QAUDS. PT VERY GAURDED OF ABD AND REPORTS INCREASE IN PAIN WITH ANY MOVEMENT. RECTAL TUBE IN PLACE WITH CONTINUED WATERY/BLOODY OUTPUT. CONTINUING TO FOLLOW H+H. TIERNEY CATH IN PLACE DRAINING YELLOW URINE WITH SEDIMENT TO GRAVITY. -FULL CODE -PT WITH NEED F/U WITH DISCHARGE CANVAS CUTTER HAND FOR PLACEMENT POST DISCHARGE PT'S SISTER REPORTS SHE DOES NOT HAVE THE MEANS TO CARE FOR HIM AT HIS USUAL HOME ANYMORE, SHE IS THE CAREGIVER FOR HER DISABLED . D/C CANVAS CUTTER HAND AWARE.
--- NOTE | 2019-07-02 17:47 | NUR ---
PT UPDATE: 1 UNIT OF BLOOD ORDERED, PT IS HAVING RECTAL BLEEDING. DR PARK REQUESTED TO HAVE DR PAL AT PT'S BEDSIDE TO DISCUSS PT'S CASE. SEE DR'S OPERATIVE NOTES.
[2019-07-02 18:23] LABS: Hematocrit 25.7 % (37.0-53.0); Hemoglobin 7.8 g/dL (13.5-17.5)
--- NOTE | 2019-07-02 20:00 | NUR ---
ASSUMED CARE OF PT AT 1915. REPORT RECEIVED AT BEDSIDE. PT PRESENTS IN BED. VERY ANXIOUS WITH SCATTERED COMMUNICATION. PT FREQEUNTLY STATES THAT HE IS DYING OR HAS ALREADY . REASSURED PT THAT HE WAS STILL ALIVE. PT HAS SOME RECTAL BLEEDING AROUND PACKING. PT DEMONSTRATES A VERY POOR SHORT TERM MEMORY AND NEEDS FREQUENT REASSURANCE. PT DEMONSTRATES A EASY STARTLED AFFECT. PT TO RECEIVE A UNIT OF PRBC'S THIS EVENING. WILL DO FOLLOWUP H/H AT COMPLETION. WILL REVIEW CHART AND PLAN OF CARE FOR THIS PT.
--- NOTE | 2019-07-02 23:44 | NUR ---
DID DO FULL BED CHANGE FOR PT SECONDARY TO SOME BLOOD ON SHEETS. DOES HAVE SOME RECTAL BLEEDING FROM AROUND PACKING. WILL REMOVE PACKING SOON PER ORDERS. PT CONTINUES WITH TRANSFUSION OF PRBC'S. NO S/S TRANSFUSION REACTIONS TO NOTE. WILL CONTINUE TO MONITOR.
[2019-07-03 01:35] LABS: Hemoglobin 7.9 g/dL (13.5-17.5)
[2019-07-03 01:56] LABS: Albumin, Blood 1.4 g/dL (3.4-5.0); Albumin/Globulin Ratio 0.3 (0.8-1.8); Bilirubin, Total 0.5 mg/dL (0.1-1.0); Bun/Creatinine Ratio 30.6 (12.0-20.0); Calcium, Blood 8.3 mg/dL (8.5-10.1); Creatinine, Blood 1.57 mg/dL (0.60-1.20); Globulin, Blood 4.1 g/dL (2.2-4.0); Potassium, Blood 4.9 mmol/L (3.5-5.5); Total Protein, Blood 5.5 g/dL (6.4-8.2)
--- NOTE | 2019-07-03 03:00 | NUR ---
PT PASSES LARGE AMOUNT OF BURGUNDY COLORED BLOOD WITH CLOTS. CALL MADE TO DR PARK. ORDERS RECEIVED. PT TO RECEIVE ANOTHER 2 UNITS PRBC'S.
[2019-07-03 05:51] LABS: Hematocrit 25.6 % (37.0-53.0); Hemoglobin 8.3 g/dL (13.5-17.5)
--- NOTE | 2019-07-03 06:30 | NUR ---
NO FURTHER BLEEDING NOTED AT THIS TIME. PT IN PROCESS OF THIRD UNIT OF PRBC'S. NO TRANSFUSION REACTIONS TO NOTE. PT HAS BEEN ABLE TO SLEEP AT THIS TIME. WILL CONTINUE TO MONITOR PT, AND WILL REPORT OFF TO ONCOMING RN.
--- NOTE | 2019-07-03 07:45 | NUR ---
ASSUMED CARE NOTE REPORT RECEIVED FROM ALEXI THEODORE. BEDSIDE ROUNDING DONE. PT RESTING IN BED WITH EYES CLOSED, BREATHING E/U. SPO2 96% ON RA. BP STABLE, SEE FLOWSHEET. RHYTHM NORMAL SINUS. PT WITH THIRD UNIT PRBC TRANSFUSING. PLAN FOR FOLLOW-UP H&H TO BE DRAWN AFTER TRANSFUSION COMPLETE. PER EWELINA PT WITH NO BLOOD FROM RECTUM SINCE 229. TIERNEY CATHETER IN PLACE, DRAINING PANCHO URINE TO GRAVITY. PIV X2 TO RFA, FLUSH EASILY. CLINIMIX RUNNING PER ORDERS. BILATERAL CALF SCD ON PT. CALL LIGHT IN REACH. BED IN LOWEST POSITION, SIDE RAILS RAISED. WILL CONT TO MONITOR PT.
--- NOTE | 2019-07-03 09:18 | NUR ---
PRBC TRANSFUSION COMPLETE THIRD AND FINAL UNIT PRBC ORDERED FINISHED TRANSFUSING AT THIS TIME. CHEMICAL STRENGTH TESTER NOTIFIED SO THAT H&H MAY BE DRAWN.
[2019-07-03 09:49] LABS: Hematocrit 28.9 % (37.0-53.0); Hemoglobin 9.3 g/dL (13.5-17.5)
--- NOTE | 2019-07-03 10:23 | NUR ---
DR PARK ROUNDS DR PARK ROUNDED, UPDATED ON PT STATUS. DR PARK NOTIFIED THAT PT WITHOUT ANY FURTHER BLOOD FROM RECTUM SINCE 229. DR PARK AWARE OF FOLLOW-UP H&H RESULTS AFTER THIRD AND FINAL UNIT PRBC TRANSFUSED. NO CHANGES TO PLAN OF CARE AT THIS TIME.
[2019-07-03 12:58] LABS: Hematocrit 27.5 % (37.0-53.0)
--- NOTE | 2019-07-03 14:04 | NUR ---
OCCUPATIONAL THERAPY OCCUPATIONAL THERAPIST TO BEDSIDE TO WORK WITH PT. UPDATED HER ON PT'S OVERNIGHT EVENTS AND THAT PT IS VERY WEAK AND FATIGUED. PT AGREED TO WORK WITH HER A LITTLE TODAY.
--- NOTE | 2019-07-03 14:40 | NUR ---
CALL TO DR PARK CALL TO DR PARK TO UPDATE ON CHANGE. DR PARK NOTIFIED THAT PT HAD A MEDIUM LOOSE MAROON STOOL. DR PARK AWARE THAT NEXT H&H IS AT 1600. PLAN TO WAIT FOR 1600 H&H LEVEL BEFORE MAKING ANY CHANGES TO PLAN OF CARE PT'S BP REMAINS STABLE. BP 92/54, HR 77. WILL CALL DR PARK WITH ANY CHANGE.
[2019-07-03 17:05] LABS: Hematocrit 26.9 % (37.0-53.0); Hemoglobin 8.8 g/dL (13.5-17.5)
--- NOTE | 2019-07-03 17:11 | NUR ---
CALL TO DR PARK CALL TO DR PARK NOTIFYING HIM OF [address] PARK AWARE OF PT'S VS REMAINING STABLE WITH SBP IN 90S AND HR IN 70S, NO CHANGE FROM PREVIOUS. PER DR PARK PLAN TO MONITOR PT AT THIS TIME, NO ORDERS TO TRANSFUSE AT THIS POINT. DR PARK AWARE THAT CURRENT ORDERS FOR H&H Q4H UNTIL 0400, PER DR PARK H&H TO BE DRAWN TONIGHT AND IN THE MORNING. ORDERS PLACED PER DR PARK INSTRUCTIONS. WILL CONT TO MONITOR PT.
--- NOTE | 2019-07-03 18:39 | NUR ---
SHIFT SUMMARY NOTE PT RESTING IN BED, AWAKENS EASILY TO VERBAL STIMULI. RHYTHM REMAINS NORMAL SINUS WITH RATE IN 70-80S. BP STABLE. SEE FLOWSHEET FOR VS. PT CONTINUES TO DENY ANY CHEST PAIN/PRESSURE. LS CLEAR T/O. SPO2 96-98% ON RA. BREATHING E/U. PT CONTINUES TO DENY ANY SOB/DYSPNEA. PT CACHECTIC. ABD TENDER TO PALPATION. BT X4, HYPOACTIVE. PT REFUSED ALL MEALS TODAY. PT WITH MEDIUM LOOSE MAROON STOOL X1, DR PARK NOTIFIED AND PLAN TO CONTINUE TO MONITOR PT. ORDER FOR H&H AT 2000 AND 0500. TIERNEY CATHETER REMAINS PATENT AND DRAINING PANCHO URINE TO GRAVITY. PIV X2 FLUSH EASILY. NS RUNNING PER ORDERS AT 125ML/HR AND CLINIMIX RUNNING PER ORDERS AT 100ML/HR. SKIN OVERALL C/D/I. BEDBATH GIVEN. PT ANXIOUS AND IS HYPERSENSITIVE. BED IN LOWEST POSITION, SIDE RAILS RAISED, BED ALARM ON. CALL LIGHT IN REACH. WILL CONT TO MONITOR PT.
--- NOTE | 2019-07-03 20:17 | NUR ---
ASSUMED CARE OF PT AT 1915. REPORT RECEIVED AT BEDSIDE. PT PRESENTS IN BED. ALERT AND CONVERSANT. CLARITY NOTED IMPROVED FROM PREVIOUS ENCOUNTER. NO S/S ACTIVE BLEEDING AT THIS TIME. PT IN NO APPARENT DISTRESS AT THIS TIME. WILL REVIEW CHART AND PLAN OF CARE FOR THIS PT.
[2019-07-03 21:06] LABS: Hematocrit 27.4 % (37.0-53.0); Hemoglobin 8.8 g/dL (13.5-17.5)
--- NOTE | 2019-07-03 22:03 | NUR ---
PT HAS PASSED SMALL AMOUNT OF MAROON COLORED BLOOD. PT ABLE TO ASSIST WITH TURNS AND COOPERATIVE WITH CARE. PT ABLE TO HOLD CONVERSATIONS AND REMAIN APPROPRIATE TO CONVERSATION. PT DOES OCCASSIONALLY LOSE THOUGHT WHILE SPEAKING AND THEN DOES WORD SEARCHING. PT DOES STATE THAT HE IS FEELING SOMEWHAT BETTER. HGB DONE AT 1999 WHICH REVEALS STABLE HGB. 8.8 UNCHANGED FROM PREVIOUS. WILL CONTINUE TO MONITOR.
--- NOTE | 2019-07-04 02:00 | NUR ---
PT ABLE TO REST SOME THIS NIGHT. NO FURTHER BLOOD PASSED. WILL CONTINUE TO MONITOR. NO DISTRESS NOTED. VSS.
[2019-07-04 04:47] LABS: Hematocrit 26.1 % (37.0-53.0); Hemoglobin 8.4 g/dL (13.5-17.5)
[2019-07-04 05:09] LABS: Albumin, Blood 1.4 g/dL (3.4-5.0); Albumin/Globulin Ratio 0.3 (0.8-1.8); Bilirubin, Total 0.4 mg/dL (0.1-1.0); Bun/Creatinine Ratio 30.5 (12.0-20.0); Calcium, Blood 8.3 mg/dL (8.5-10.1); Creatinine, Blood 1.41 mg/dL (0.60-1.20); Globulin, Blood 4.1 g/dL (2.2-4.0); Potassium, Blood 4.8 mmol/L (3.5-5.5); Total Protein, Blood 5.5 g/dL (6.4-8.2)
--- NOTE | 2019-07-04 05:44 | NUR ---
PT REMAINS WITHOUT COMPLAINTS OR S/S DISTRESS THROUGHOUT THE NIGHT. DENIES PAIN. NO FURTHER BLOOD PASSED. REVIEW AM LABS. HGB 8.4 THIS AM DOWN SLIGHTLY FROM 8.8 FROM PREVIOUS DRAW. NO COMPLAINTS OF NAUSEAS. WILL CONTINUE TO MONITOR PT, AND WILL REPORT OFF TO ONCOMING RN.
--- NOTE | 2019-07-04 07:37 | NUR ---
ONCOMING NOTE REPORT RECEIVED FROM ALEXI THEODORE. BEDSIDE REPORT DONE. PT RESTING IN BED WITH EYES OPEN WATCHING LANDRY NEWS. PT DENIES ANY PAIN OR DISCOMFORT AT THIS TIME. PT ALERT AND ORIENTED TO ALL BUT DATE/TIME. PT ANXIOUS ALTHOUGH COOPERATIVE WITH CARE - WHEN FLUSHING IVs PT ASKS "DID YOU STOP THE IV FIRST?". PIVs FLUSH EASILY. CLINIMIX RUNNING PER ORDERS AT 100ML/HR AND NS RUNNING PER ORDERS AT 125ML/HR. RHYTHM SHOWING NORMAL SINUS ON MONITOR WITH RATE IN 70S. BP STABLE. SEE FLOWSHEET FOR VS. ABD MOD DISTENDED, TENDER TO PALPATION. PT DENIES NAUSEA. PER REPORT, PT WITH SMALL LOOSE, DARK MAROON STOOL AT 0600. TIERNEY CATHETER DRAINING PANCHO URINE TO GRAVITY. PT MAEW, ALTHOUGH WEAK AND DECONDITIONED. SKIN OVERALL C/D/I. BED IN LOWEST POSITION, SIDE RAILS RAISED. CALL LIGHT IN REACH. WILL CONT TO MONITOR PT.
--- NOTE | 2019-07-04 07:54 | NUR ---
DR PARK ROUNDS DR PARK ROUNDED, UPDATED ON PT STATUS. DR PARK AWARE OF PT'S HGB LEVEL AND MOST RECENT SMALL LOOSE, DARK MAROON STOOL AT 0600. PER DR PARK PLAN REMAINS TO CONTINUE MONITORING PT. PT OKAY TO EAT PER DR PARK. NO FURTHER CHANGES TO PLAN OF CARE AT THIS TIME. WILL CONT TO MONITOR PT.
--- NOTE | 2019-07-04 09:56 | NUR ---
TIERNEY CATHETER PT VOIDED AROUND TIERNEY CATHETER. BALLOON DEFLATED, 8CC WATER RETURNED INTO SYRINGE, TIERNEY CATHETER READJUSTED AND BALLOON REINFLATED WITH 10CC STERILE WATER. TIERNEY CATHETER SHOWN TO BE DRAINING TO GRAVITY.
--- NOTE | 2019-07-04 13:58 | NUR ---
CALL TO DR PARK CALL TO DR PARK TO SEE ABOUT H&H LABS THERE IS A CBC ORDERED FOR TOMORROW AM BUT NOTHING IN BETWEEN. PER DR PARK, ORDER H&H IF THE PT HAS MORE BLEEDING OTHERWISE OKAY TO WAIT FOR CBC IN THE AM FOR H&H LEVELS.
--- NOTE | 2019-07-04 16:31 | NUR ---
H&H DRAW DESIGN ENGINEERING MANAGER TO BEDSIDE AT THIS TIME TO DRAW BLOOD FOR H&H.
[2019-07-04 16:53] LABS: Hematocrit 25.9 % (37.0-53.0); Hemoglobin 8.3 g/dL (13.5-17.5)
[2019-07-05 03:37] LABS: BASOPHILS ABSOLUTE AUTO 0.06 K/mm3 (0.00-0.23); BASOPHILS PERCENT AUTO 1 % (0-2); EOSINOPHILS ABSOLUTE AUTO 0.19 K/mm3 (0.00-0.68); EOSINOPHILS PERCENT AUTO 2 % (0-6); Hematocrit 26.3 % (37.0-53.0); Hemoglobin 8.3 g/dL (13.5-17.5); IMMATURE GRAN ABSOLUTE AUTO 0.04 K/mm3 (0.00-0.10); IMMATURE GRAN PERCENT AUTO 0 % (0-1); LYMPHOCYTES ABSOLUTE AUTO 1.49 K/mm3 (0.84-5.20); LYMPHOCYTES PERCENT AUTO 15 % (21-46); MONOCYTES ABSOLUTE AUTO 0.87 K/mm3 (0.16-1.47); MONOCYTES PERCENT AUTO 9 % (4-13); Mean Corpuscular HGB 25.6 pg (26.0-34.0); Mean Corpuscular HGB Conc 31.6 g/dL (31.5-36.5); Mean Corpuscular Volume 81 fL (80-100); Mean Platelet Volume 9.7 fL (9.1-12.4); NEUTROPHILS ABSOLUTE AUTO 7.47 K/mm3 (1.96-9.15); NEUTROPHILS PERCENT AUTO 74 % (41-73); Platelet Count 277 K/mm3 (150-400); RDW Coefficient Variation 17.2 % (11.7-14.2); RDW Standard Deviation 50.3 fL (35.1-46.3); Red Blood Cell Count 3.24 M/mm3 (4.30-5.90); White Blood Cell Count 10.12 K/mm3 (4.00-11.30)
[2019-07-05 03:56] LABS: Albumin, Blood 1.4 g/dL (3.4-5.0); Albumin/Globulin Ratio 0.3 (0.8-1.8); Bilirubin, Total 0.4 mg/dL (0.1-1.0); Bun/Creatinine Ratio 28.5 (12.0-20.0); Calcium, Blood 8.3 mg/dL (8.5-10.1); Creatinine, Blood 1.3 mg/dL (0.60-1.20); Globulin, Blood 4.1 g/dL (2.2-4.0); Potassium, Blood 4.4 mmol/L (3.5-5.5); Total Protein, Blood 5.5 g/dL (6.4-8.2)
--- NOTE | 2019-07-05 06:02 | NUR ---
SHIFT SUMMARY PATIENT SLEPT OFF AND ON THROUGH NIGHT. HAD MULTIPLE LIQUID STOOLS, ONLY FIRST ONE (OF 6) HAD MAROON TINGE TO IT; REST WERE LIQUID AND BROWN IN COLOR WITH NO RED VISIBLE. NO OTHER CHANGES NOTED. VSS. NO C/O PAIN. ASSESSMENT IS CHARTED. WILL CONTINUE TO MONITOR.
--- NOTE | 2019-07-05 07:29 | NUR ---
ASSUMED PATIENT CARE. PATIENT ASSISTED WITH DIANNA CARE, REPOSITIONING, AND LINEN CHANGE. PATIENT ALERT AND SPEAKING WITH NURSING STAFF.
--- NOTE | 2019-07-05 10:40 | NUR ---
DISCUSSED PT'S REFUSAL OF BREAKFAST WITH DIETITIAN. DIETITIAN SPOKE WITH PT TO DETERMINE FURTHER MEAL OPTIONS.
--- NOTE | 2019-07-05 11:43 | NUR ---
Patient is lying in bed and alert. Patient is immediately goes on a long monologue about the problems with perscription drugs of any kind and the problems with doctors who perscribe them without doing the research. Patient gives little room for discussion or another point of view before switching to another topic. My hope is that, at minimum, patient would feel valued in being heard and ultimately would soften his opinions enough to allow the staff that surround him to care for him and trust their expertise. As I listen I do hear patient admit that he does not know what all is best and that the doctors and nurses might really be trying to help him. I will continue to remain available to patient and family.
--- NOTE | 2019-07-05 14:20 | NUR ---
PATIENT STATES THAT HE IS TIRED AFTER WORKING WITH PHYSICAL THERAPY. PATIENT REQUESTED TO HAVE ALL 4 BEDRAILS UP IN ORDER TO FEEL MORE SECURE. WCTM.
--- NOTE | 2019-07-05 16:00 | NUR ---
GAVE REPORT TO ALEXI REYNAGA. PATIENT SHOWS NO SIGNS OF ACUTE DISTRESS.
--- NOTE | 2019-07-05 16:43 | NUR ---
TRANSFER PT TRANSFERRED UP FROM ICU, ABLE TO STAND AND TRANSFER SELF WITH MIN ASSIST FROM THE WHEELCHAIR TO THE BED, PT REQUESTS ALL 4 BED RAILS TO BE UP, PT INCONTINENT OF STOOL, LIQUID GREEN, ATTENDS CHANGED
--- NOTE | 2019-07-05 16:45 | NUR ---
PATIENT TRANSFERED VIA WHEELCHAIR TO 330 BY HOSPITAL STAFF.
--- NOTE | 2019-07-05 18:09 | NUR ---
SUMMARY PT RESTING IN BED, PLEASANT AND COOPERATIVE WITH CARE, CHANGED FREQUENTLY FOR LOOSE STOOL, WILL CONT TO MONITOR
--- NOTE | 2019-07-06 03:55 | NUR ---
SHIFT SUMMARY: VSS. AFEB. A/OX4. COMMUNICATES NEEDS. ABD SOFT, NON-TENDER, NON-DISTENDED. BT ACTIVE X 4. GREEN LIQUID STOOL LEAKING ALMOST CONTINUOUSLY FROM ANUS. NO AGGIE BLOOD OR MELENA OBSERVED. DENIES N/V. DENIES PAIN. CONT ON IV CLINIMIX. NO ACUTE CHANGES. WILL CONT TO MONITOR.
[2019-07-06 05:39] LABS: BASOPHILS ABSOLUTE AUTO 0.08 K/mm3 (0.00-0.23); BASOPHILS PERCENT AUTO 1 % (0-2); EOSINOPHILS ABSOLUTE AUTO 0.23 K/mm3 (0.00-0.68); EOSINOPHILS PERCENT AUTO 2 % (0-6); Hematocrit 26.8 % (37.0-53.0); Hemoglobin 8.5 g/dL (13.5-17.5); IMMATURE GRAN ABSOLUTE AUTO 0.06 K/mm3 (0.00-0.10); IMMATURE GRAN PERCENT AUTO 1 % (0-1); LYMPHOCYTES ABSOLUTE AUTO 1.33 K/mm3 (0.84-5.20); LYMPHOCYTES PERCENT AUTO 12 % (21-46); MONOCYTES ABSOLUTE AUTO 0.78 K/mm3 (0.16-1.47); MONOCYTES PERCENT AUTO 7 % (4-13); Mean Corpuscular HGB Conc 31.7 g/dL (31.5-36.5); Mean Corpuscular Volume 82 fL (80-100); NEUTROPHILS ABSOLUTE AUTO 8.95 K/mm3 (1.96-9.15); NEUTROPHILS PERCENT AUTO 78 % (41-73); Platelet Count 322 K/mm3 (150-400); RDW Coefficient Variation 17.5 % (11.7-14.2); RDW Standard Deviation 52.3 fL (35.1-46.3); Red Blood Cell Count 3.27 M/mm3 (4.30-5.90); White Blood Cell Count 11.43 K/mm3 (4.00-11.30)
[2019-07-06 05:59] LABS: Bun/Creatinine Ratio 27.7 (12.0-20.0); Calcium, Blood 8.6 mg/dL (8.5-10.1); Creatinine, Blood 1.3 mg/dL (0.60-1.20); Potassium, Blood 4.5 mmol/L (3.5-5.5)
--- NOTE | 2019-07-06 14:18 | NUR ---
Permission for care given to student by patient at [phone]
--- NOTE | 2019-07-06 17:25 | NUR ---
SUMMARY PT SITTING UP IN BED WATCHING TV, PT HAS BEEN PLEASANT AND COOPERATIVE WITH CARE, CAN BE PARTICULAR ABOUT HIS CARE, SPOKE WITH THE PLEATING MACHINE OPERATOR ABOUT HIS DIET, WORKED WITH PT/OT, POSS DC TO SNF SOON, VSS, NO ACUTE CHANGES, WILL CONT TO MONITOR
--- NOTE | 2019-07-07 10:24 | NUR ---
IV SITE VERY STIFF. WILL ASK DR ADHIKARI FOR NO IV ACCESS ORDER PER PATIENT REQUEST.
--- NOTE | 2019-07-07 15:44 | NUR ---
SHIFT SUMMARY PATIENT HAD AN UNEVENTFUL SHIFT. VITALS STABLE. NO COMPLAINTS OF PAIN. IV AND IV MEDICATIONS DISCONTINUED PER PATIENT REQUEST. PATIENT WAS RELUCTANT ABOUT THE MEDICATIONS HE WAS PRESCRIBED; I GAVE HIM EDUCATIONAL MATERIAL REGARDING EACH MEDICATION. PATIENT TO POSSIBLY DISCHARGE TOMORROW. NO ACUTE CHANGES TO REPORT ON THIS SHIFT.
--- NOTE | 2019-07-07 15:55 | NUR ---
Spiritual care visit conducted. Patient is sitting up in bed and alert. Patient loves to talk about yazidism and all the beliefs systems that he has studied and he mixes in stories about his life and the pain he has experienced. Patient gets emotional from time to time as he talks then moves on to the next topic. I remind patient of his value and worth and talk about the love and peace of God. I also provide prayer. Patient is deeply moved by the prayer and states that he has rarely felt that much presence of something holy and kind. Patient voices appreciation for listening with out judgement and for the powerful prayer. I will continue to remain available to patient and family.
[2019-07-07 17:07] LABS: Hematocrit 30.7 % (37.0-53.0); Hemoglobin 9.5 g/dL (13.5-17.5)
--- NOTE | 2019-07-07 18:10 | NUR ---
PATIENT GOT UP TO HAVE A BM @ ABOUT 1600. THE PATIENT PASSED BLOOD CLOTS AND LOOSE RED BLOOD. NOTIFIED DR ADHIKARI AT 1615 AND NEW ORDERS RECIEVED TO OBTAIN AN H&H NOW AND AGAIN IN 6 HOURS. DURING THIS TIME THE PATIENT GOT UP TO THE BSC AND HAD ANOTHER BM, LOOSE BLOOD AND JELLY CONSISTANCY. THIS WAS MEASURED AND 600cc NOTED. VITALS OBTAINED AND BP HAD DROPED FROM 136 SYSTOLLICALLY TO 94. H&H WAS 9.5/30.7. DR ADHIKARI NOTIFIED AGAIN AT 1622 AND GAVE ORDERS TO NOTIFY DR PARK, THE SURGEON, TO TRANSFER THE PATIENT TO ICU AND START THE PATIENT ON NS @ 200/HR X 1L. ALL ORDERS FULFILLED INSTRUCTED. REPORT CALLED DOWN TO AMALIA, BUSINESS EDUCATION PROFESSOR, AT 1742. PATIENT TRANSFERED VIA BED.
--- NOTE | 2019-07-07 18:26 | NUR ---
TRANSFER TO ICU 9 Pt transferred from ICU 9 from medical floor due to acute GI bleed. Telephone report received from Alma TRUONG. Per report, pt had two bowel movements of resembling lincoln blood, one unmeasured and one that was 600 mL. Med floor nurse states she will call and update sister. This RN placed call to answering service to verify that consult for Dr Poe will be delivered tonightHernando Taylor, from answering service confirms this. Upon arrival to unit, pt is alert and oriented, talking to staff. Pt recalls recent time spent in ICU and verbalizes anxiety about being in ICU and anxiety that he will be confused again. On room air. VSS. SR per monitor. Pt wearing attends with scant amount of blood present. Changed attends. Pt immediately had a void of lincoln blood into attends. Pt on bedpan at this time. Bed in lowest position. Call light in reach. Pt denies need at this time.
--- NOTE | 2019-07-07 18:29 | NUR ---
CALLED PATIENTS SISTER AT 1830 TO INFORM HER THAT PATIENT WAS TRANFERED TO ICU ROOM # 9.
--- NOTE | 2019-07-07 19:25 | NUR ---
BEDSIDE REPORT FROM AMALIA TRUONG. DR. WESTBROOK AT BEDSIDE AND PLACED RECTAL HEMOSTAT FOAM PACKING. PT TOLERATED WELL. PT NOW SITTING UP IN BED EATING HIS DINNER. CALL LIGHT WITHIN REACH.
--- NOTE | 2019-07-08 01:49 | NUR ---
UPDATE: VSS, PT CALLS UMBRELLA MENDER LIGHT APPRX EVERY 20 MIN FOR ATTEND CHANGE. PT C/ SEVERAL SMALL LIQUID/JELLY STOOLS THIS SHIFT THUS FAR. STOOLS HAVE BEEN SMALL RANGING FROM DARK GREEN TO SCANT AMOUNTS OF AGGIE RED BLOOD. MOST STOOLS ARE SMEARS. PT CURRENTLY ENCOURAGED TO HAVE LIGHTS OUT AND TV OFF TO TRY TO GET SOME SLEEP. CALL LIGHT WITHIN REACH.
[2019-07-08 04:35] LABS: BASOPHILS ABSOLUTE AUTO 0.11 K/mm3 (0.00-0.23); BASOPHILS PERCENT AUTO 1 % (0-2); EOSINOPHILS PERCENT AUTO 3 % (0-6); Hematocrit 23.8 % (37.0-53.0); Hemoglobin 7.4 g/dL (13.5-17.5); IMMATURE GRAN ABSOLUTE AUTO 0.05 K/mm3 (0.00-0.10); IMMATURE GRAN PERCENT AUTO 1 % (0-1); LYMPHOCYTES ABSOLUTE AUTO 1.18 K/mm3 (0.84-5.20); LYMPHOCYTES PERCENT AUTO 11 % (21-46); MONOCYTES PERCENT AUTO 7 % (4-13); Mean Corpuscular HGB Conc 31.1 g/dL (31.5-36.5); Mean Corpuscular Volume 84 fL (80-100); Mean Platelet Volume 10.1 fL (9.1-12.4); NEUTROPHILS ABSOLUTE AUTO 8.12 K/mm3 (1.96-9.15); NEUTROPHILS PERCENT AUTO 78 % (41-73); Platelet Count 308 K/mm3 (150-400); RDW Coefficient Variation 17.8 % (11.7-14.2); RDW Standard Deviation 54.6 fL (35.1-46.3); Red Blood Cell Count 2.85 M/mm3 (4.30-5.90); White Blood Cell Count 10.46 K/mm3 (4.00-11.30)
[2019-07-08 04:52] LABS: Bun/Creatinine Ratio 26.2 (12.0-20.0); Calcium, Blood 8.6 mg/dL (8.5-10.1); Creatinine, Blood 1.41 mg/dL (0.60-1.20); Potassium, Blood 4.4 mmol/L (3.5-5.5)
--- NOTE | 2019-07-08 08:57 | NUR ---
ASSESSMENT- PT AWAKE, ALERT, COOPERATIVE. DOES PICK AT IVS, LINES, ATTEMPT TO REDIRECT BEHAVIOR WITH IMPROVEMENT. POOR MEMORY. NSR, LUNGS CLEAR, ABDOMEN SOFT, NONTENDER. ATE BREAKFAST WITHOUT COMPLAINTS. INCONTINENT PAD ON. PEDAL, LOWER LEG EDEMA PRESENT. DR. ADHIKARI HERE-UPDATED. PACKED CELLS STARTED. PIV X 2 INTACT.
--- NOTE | 2019-07-08 09:17 | NUR ---
BLOOD INFUSING WITHOUT S/S REACTIONS. NEEDS REDIRECTION TO NOT PULL AT LINES. WILL JUST RANDOMLY SWEAR FOR NO REASON. REASSURANCE GIVEN.
--- NOTE | 2019-07-08 09:53 | NUR ---
BLOOD INFUSING WITHOUT S/S PROBLEMS. INCONTINENT-DIANNA CARE DONE
--- NOTE | 2019-07-08 11:14 | NUR ---
BLOOD INFUSED NO S/S REACTION. PT RESTING IN BED WITHOUT COMPLAINTS.
--- NOTE | 2019-07-08 14:18 | NUR ---
Spiritual care visit conducted. Patient is more confused today and actually asked me if I would pray for him, which I gladly did. Patient said some very confused statement but then looked me in the eye and said, "I am scared." I try to provide some anxiety containment as well as normalize his experience. Patient showed evidence of reduction of stress. I will continue to remain available to patient and family.
--- NOTE | 2019-07-08 14:23 | NUR ---
Met with Neno in the ICU this afternoon. He is awake and alert. He is oriented to himself and place. He thought it was 03/06/2018. Sometimes he will answer a question with an answer that is completely unrelated to the question. He reports there is a conspiracy theory but cannot elaborate on what he means by that. He jumps from thought to thought and is unable to answer quetions at times. He states that his sister did come to visit him this morning, which nursing confirmed, however he has difficulty tracking our conversation. He denied pain but then stated that his upper back was bothering him. Helped him reposition in the bed for comfort. He is much less anxious then when this telegraphic typewriter operator first met him last week. He is unable to relay any information that he spoke with the doctor about earlier today. CM requested that this telegraphic typewriter operator have a conversation with Neno about his goals for care and to explore if he was interested in any hospice services at this time. CM also reports pt's sister, Kimberlee, is involved in his care, however she is the caregiver for her who has had a stroke. At this time, after speaking with Neno this afternoon it is this telegraphic typewriter operator's opinion that he would not be able to make decisions for himself. Spoke with real estate development manager Lexa who also reports that pt seems to be more confused today than in previous days. LM for pt's sister, Kimberlee, at [phone] to contact [facility] to discuss options for care and to answer any questions that she may have. Nursing reports that Kimberlee was upset this morning when she visited him earlier today. Updated CM. Will attempt to have a discussion with Kimberlee when she is available.
--- NOTE | 2019-07-08 14:24 | NUR ---
PT WITH STABLE VS. INCONTINENT, DIANNA CARE DONE. ABLE TO TURN FOR REPOSITIONING. REPORT TO TAWANDA TRUONG. PT TO GO TO MEDICAL.
--- NOTE | 2019-07-08 14:40 | NUR ---
PT ARRIVED TO ROOM 333. TRANSFERRED TO BED AND ORIENTED TO ROOM AND CALL SYSTEM. PT IS ALERT AND ORIENTED X3, CALL JOHNSON IN REACH AND BED IN LOWEST POSITION, BED ALARM ARMED. WILL CONTINUE TO MONITOR.
--- NOTE | 2019-07-08 16:30 | NUR ---
PT WITH LARGE, LIQUID BLOODY STOOL WITH LARGE CLOTS. DR ADHIKARI INFORMED, ORDERS RECEIVED FOR H/H. WILL MONITOR
[2019-07-08 17:21] LABS: Hematocrit 27.3 % (37.0-53.0); Hemoglobin 8.8 g/dL (13.5-17.5)
--- NOTE | 2019-07-08 18:04 | NUR ---
PT HAS NOT HAD ANY FURTHER BLOODY STOOLS THIS AFTERNOON, STAT H&H RESULTS OF 8.8/27.3. PT USES CALL JOHNSON AND CALLS FREQUENTLY. AT TIMES HE WILL CALL FOR ASSISTANCE WHILE HAND COOPER HELPER/RN IS AT BEDSIDE TALKING WITH HIM. NO ACUTE CHANGES NOTED SINCE ARRIVAL TO ROOM, WILL CONTINUE TO MONITOR AND REPORT TO ON COMING RN
--- NOTE | 2019-07-09 05:27 | NUR ---
SHIFT SUMMARY: 64 Y/O MALE HAD RESTLESS FIRST 1/2 OF SHIFT AT TIMES; MINIMAL INCONTINENCE WITH PATIENT PUSHING BED CALL LIGHT EVERY 5-10 SECONDS; PT UNABLE TO FOLLOW ANY SIMPLE REDIRECTIONS FROM STAFF WHEN INSTRUCTED HOW TO OPERATE CALL LIGHT; PT ALERT PERSON ONLY AND REQUIRED ASSISTANCE WITH ALL ADLS, DENIES PAIN OR NAUSEA; BED ALARM APPLIED, BED LOW POSITION, CALL LIGHT AT SIDE.
[2019-07-09 06:08] LABS: BASOPHILS ABSOLUTE AUTO 0.09 K/mm3 (0.00-0.23); BASOPHILS PERCENT AUTO 1 % (0-2); EOSINOPHILS ABSOLUTE AUTO 0.28 K/mm3 (0.00-0.68); EOSINOPHILS PERCENT AUTO 2 % (0-6); Hematocrit 27.9 % (37.0-53.0); Hemoglobin 8.9 g/dL (13.5-17.5); IMMATURE GRAN ABSOLUTE AUTO 0.05 K/mm3 (0.00-0.10); IMMATURE GRAN PERCENT AUTO 0 % (0-1); LYMPHOCYTES PERCENT AUTO 13 % (21-46); MONOCYTES ABSOLUTE AUTO 1.02 K/mm3 (0.16-1.47); MONOCYTES PERCENT AUTO 8 % (4-13); Mean Corpuscular HGB 26.4 pg (26.0-34.0); Mean Corpuscular HGB Conc 31.9 g/dL (31.5-36.5); Mean Corpuscular Volume 83 fL (80-100); NEUTROPHILS ABSOLUTE AUTO 10.35 K/mm3 (1.96-9.15); NEUTROPHILS PERCENT AUTO 76 % (41-73); Platelet Count 429 K/mm3 (150-400); RDW Coefficient Variation 17.5 % (11.7-14.2); RDW Standard Deviation 52.9 fL (35.1-46.3); Red Blood Cell Count 3.37 M/mm3 (4.30-5.90); White Blood Cell Count 13.59 K/mm3 (4.00-11.30)
[2019-07-09 06:27] LABS: Bun/Creatinine Ratio 24.3 (12.0-20.0); Calcium, Blood 9.1 mg/dL (8.5-10.1); Creatinine, Blood 1.44 mg/dL (0.60-1.20); Potassium, Blood 3.9 mmol/L (3.5-5.5)
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
--- NOTE | 2019-07-10 06:07 | NUR ---
SHIFT SUMMARY PT IS A 64 Y/O MALE, ADMITTED FOR ACTUE RENAL FAILURE AND GI BLEED. HE IS A&O X 1-22, AND CAN BE PARANOID AT TIMES. PT IS VERY QUIET WITH A FLAT AFFECT. HE IS A 1PA OUT OF BED. NO COMPLAINTS OF PAIN, NAUSEA OR SOB. NO BLOODY STOOLS NOTED BY STAFF. VITAL SIGNS STABLE. NO ACUTE CHANGES IN PT CONDITION NOTED. WILL CONTINUE TO MONITOR AND TREAT PER EMAR UNTIL HAND OFF TO DAY SHIFT RN.
--- NOTE | 2019-07-10 18:22 | NUR ---
SHIFT SUMMARY PT HAS BEEN SLEEPING OFF AND ON THIS SHIFT. PT HAS HAD NO COMPLAINTS OF PAIN OR SHORTNESS OF BREATH THIS SHIFT. PT DECLINED TO WORK WITH PHYSICAL THERAPY. PT DOES HAVE SOME CONFUSION THIS EVENING AND PT HAS NOTICED HIMSELF AND REPORTED FEELING UPSET ABOUT IT. PT HAS NO APPETITE AT THIS TIME AND DECLINED HIS DINNER. DINNER TRAY LEFT IN ROOM IN CASE PT WANTS TO EAT LATER. NO ACUTE CHANGES THIS SHIFT. WAITING FOR PLACEMENT AT [place] ON FRIDAY. CALL LIGHT IN REACH. WILL CONTINUE TO MONITOR AND REPORT TO ONCOMING RN.
--- NOTE | 2019-07-11 06:46 | NUR ---
SHIFT SUMMARY PT IS A 64 Y/O MALE, ADMITTED FOR ACUTE KIDNEY FAILURE. HE IS A&O X 2, AND REPORTED THAT HE FELT "MORE CONFUSED" DURING THE NIGHT THAN DURING THE DAY. PT WAS VERY ANXIOUS DURING THE NIGHT, REPEATEDLY ASKING ABOUT HIS ARM, AND STATING THAT HE WAS "HAVING TROUBLE BREATHING" AND WAS "VERY WORRIED ABOUT IT". PT'S LUNG SOUNDS WERE CLEAR, O2 SATS > 96%, PT TALKING IN WHOLE AND COMPLETE SENTENCES, NO S/S OF RESPIRATORY DISTRESS. PT ALSO REPEATED THAT HE FELT "WEAK A KITTEN" AND DIDN'T THINK HE COULD GET OUT OF BED. NO COMPLAINTS OF ACUTE PAIN OR NAUSEA. VITAL SIGNS STABLE. NO ACUTE CHANGES IN PT CONDITION NOTED. WILL CONTINUE TO MONITOR AND TREAT PER EMAR UNTIL HAND OFF TO DAY SHIFT RN.
--- NOTE | 2019-07-11 18:35 | NUR ---
SHIFT SUMMARY PT HAS BEEN AWAKE MOST OF THE DAY. PT DOES NOT HAVE MUCH OF AN APPETITE AND HAS HAD A FLAT AFFECT TODAY. PT UP TO CHAIR FOR ALL MEALS AND HAS AMBULATED TO THE BATHROOM WHEN ENCOURAGED TO. NO ACUTE CHANGES THIS SHIFT. PLANS FOR PT TO DISCHARGE TOMORROW TO THE [facility]. CALL LIGHT IN REACH. WILL CONTINUE TO MONTIOR AND REPORT TO ONCOMING RN.
--- NOTE | 2019-07-12 06:47 | NUR ---
SHIFT SUMMARY PT IS A 64 Y/O MALE, ADMITTED FOR ACUTE RENAL FAILURE. HE IS A&O X 2-3, THOUGH REPORTED THAT HE FEELS MORE "CLEAR-HEADED" THIS AM COMPARED TO PREVIOUS DAYS. PT DENIED ANY COMPLAINTS OF PAIN, NAUSEA OR ACUTE SOB. VITAL SIGNS STABLE. PT SLEPT WELL THROUGH THE NIGHT. NO ACUTE CHANGES IN PT CONDITION NOTED. WILL CONTINUE TO MONITOR AND TREAT PER EMAR UNTIL HAND OFF TO DAY SHIFT RN.
--- NOTE | 2019-07-12 11:47 | NUR ---
REPORT TO V.A. EXT [id number] TO MARTELL. ANSWER ALL QUESTIONS. TO BE PICKED UP AT 1PM BY [facility]
== END 2019-07-12 13:19 | DRG 683 ==
LOC: ER 07:02 → EOR 10:22 → ICUW 10:22 → ER 10:22 → ERHOLD 10:22 → MEDS 10:22 → ICUW 07-02 09:00 → MEDS 07-05 16:24 → ICUW 07-07 18:13 → MEDS 07-08 14:39 → ENPENDDIS 07-12 11:49 → MEDS 07-12 13:19
PROVIDERS: Emergency Medicine; Hospitalist; Internal Medicine; Internal Medicine Gastroenterology; Nurse Practitioner Acute Care; Surgery; ADMIT Family Medicine
PROC: 0DJD8ZZ Inspection of Lower Intestinal Tract, Via Natural or Artificial Opening Endoscopic (ICD-10-PCS; principal; 2019-07-02 16:00)
PROC: 0DJ08ZZ Inspection of Upper Intestinal Tract, Via Natural or Artificial Opening Endoscopic (ICD-10-PCS; 2019-07-02 16:00)
DX: N17.9 Acute kidney failure, unspecified (principal); D62 Acute posthemorrhagic anemia; K51.90 Ulcerative colitis, unspecified, without complications; K92.2 Gastrointestinal hemorrhage, unspecified; E87.1 Hypo-osmolality and hyponatremia; E87.2 Acidosis; R74.0 Nonspecific elevation of levels of transaminase and lactic acid dehydrogenase [LDH]; I95.9 Hypotension, unspecified; F32.9 Major depressive disorder, single episode, unspecified; F43.10 Post-traumatic stress disorder, unspecified; R86.0 Abnormal level of enzymes in specimens from male genital organs; Z85.810 Personal history of malignant neoplasm of tongue; Z51.5 Encounter for palliative care; E16.2 Hypoglycemia, unspecified; R33.9 Retention of urine, unspecified
CPT/HCPCS: 0097U; 36415; 36430; 71046; 74018; 80048; 80053; 80069; 80076; 82140; 82248; 82550; 82947; 83690; 83735; 84100; 84443; 85014; 85018; 85025; 86850; 86900; 86901; 86923; 88305; 93005; 93010; 96360; 96361; 97110; 97116; 97162; 97166; 97530; 99285-25; A9270-GY; C9113; J0171; J0744; J1430; J2250; J2704; J3010; J7030; J7050; J7120; P9016